=== PATIENT | male | born 1985 | race Caucasian/White ===

== ENCOUNTER 2016-12-14 11:08 | Emergency (ER) | payer SELFPAY ==
[~2016-12-14] VITALS: Ht 177.8 cm; Wt 94.5 kg
[2016-12-14 11:21] VITALS: Ht 177.8 cm; Wt 94.5 kg
[2016-12-14] MEDS ORDERED: ORPH100T PO (12:48)
[2016-12-14] MEDS ORDERED: IBUP-1542 PO (12:48)
--- NOTE | 2016-12-14 12:56 | ERD ---
ER Documentation Chief Complaint Date/Time DATE: 12/14/16 TIME: 12:54 Chief Complaint Pt with Lower back pain x 6 days after lifting heavy objects. HPI This is a 31-year-old male presents to the ER with lower back pain that started on 08 December he is picking up tables. Patient states that the next day he felt that pain got worse. Patient has been taking ibuprofen which has been helping his pain. Patient needs a note for work stating he is better to go back. Patient states that he does feel much better he wishes to go back to work. Patient denies any urinary bowel incontinence he denies any saddle like anesthesia patient denies any fevers or chills. He denies any IV drug use. ROS 12 point review of systems was done, all negative except per HPI. Medications Home Meds Active Scripts Orphenadrine Citrate (Norflex) 100 Mg Tablet.sa, 100 MG PO BID for 3 Days, TAB.SA Prov:SHARATH PEARCE 12/14/16 Ibuprofen* (Motrin*) 600 Mg Tab, 600 MG PO Q6, #30 TAB Prov:SHARATH PEARCE 12/14/16 PMhx/Soc History of Surgery: No Anesthesia Reaction: No Hx Neurological Disorder: No Hx Respiratory Disorders: No Hx Cardiac Disorders: No Hx Psychiatric Problems: No Hx Miscellaneous Medical Probl: No Hx Alcohol Use: No Hx Substance Use: No Hx Tobacco Use: No Physical Exam Vitals Vital Signs Date Time Temp Pulse Resp B/P Pulse Ox O2 Delivery O2 Flow Rate FiO2 12/14/16 11:21 98.2 71 14 138/79 98 Physical Exam GENERAL: The patient is well developed and appropriate for usual state of health , in no apparent distress. CHEST: Clear to auscultation bilaterally. There are no rales, wheezes or rhonchi. HEART: Regular rate and rhythm. No murmurs, clicks, rubs or gallops. BACK: No midline or flank tenderness. Normal range of motion, patient is able to ambulate in the exam room without any problems. Tense paraspinal muscles. Negative leg raise test. No step- offs. EXTREMITIES: Equal pulses bilaterally. There is no peripheral clubbing, cyanosis or edema. No focal swelling or erythema. Full range of motion. Grossly neurovascularly intact. NEURO: Alert and oriented SKIN: The skin is warm and dry. Procedures/MDM Differential Diagnosis includes but is not limited to back strain, vertebral fracture, epidural abscess, cauda equina, herniated disc, AAA rupture, kidney stones, UTI, pyelonephritis. This is a 31-year-old male presents to the ER with lower back pain that started 6 days ago. Patient states that he feels significantly better and would like a letter to go back to work. This time patient's physical examination is benign and I do not believe that x-ray is needed as he does not have any vertebral point tenderness his pain has improved. Suspicion for cauda equina. Patient is afebrile and well-appearing. He will be sent home with ibuprofen and Norflex. He is to follow-up with his primary care doctor within 1-2 days or return to ER sooner if symptoms worsen. My medical decision making was shared with the patient he understands and agrees with plan. Departure Diagnosis: Primary Impression: Back pain Condition: Stable Patient Instructions: Back Pain (Acute Or Chronic) Additional Instructions: Call your primary care doctor TOMORROW for an appointment during the next 1-2 days.See the doctor sooner or return here if your condition worsens before your appointment time. SHARATH PEARCE Dec 14, 2016 12:56
== END 2016-12-14 13:12 | disposition home or self-care (01) ==
LOC: FTE 11:08
DX: M54.5 Low back pain (principal)
CPT/HCPCS: 99283

== ENCOUNTER 2017-03-26 10:33 | Emergency (ER) | payer SELFPAY ==
[~2017-03-26] VITALS: Ht 170.2 cm; Wt 93.0 kg
[~2017-03-26 10:33] MED LIST: IBUP-1542 PO; ORPH100T PO
[2017-03-26 10:35] VITALS: Ht 170.2 cm; Wt 93.0 kg
--- NOTE | 2017-03-26 13:11 | ERD ---
ER Documentation Chief Complaint Chief Complaint Complains of dizzines x 3 days HPI 12:55 The patient is not in the room. 13:30 No answer. Medications Home Meds Active Scripts Orphenadrine Citrate (Norflex) 100 Mg Tablet.sa, 100 MG PO BID for 3 Days, TAB.SA Prov:SHARATH PEARCE Jessica 12/14/16 Ibuprofen* (Motrin*) 600 Mg Tab, 600 MG PO Q6, #30 TAB Prov:SHARATH PEARCE 12/14/16 PMhx/Soc History of Surgery: No Anesthesia Reaction: No Hx Neurological Disorder: No Hx Respiratory Disorders: No Hx Cardiac Disorders: No Hx Psychiatric Problems: No Hx Miscellaneous Medical Probl: No Hx Alcohol Use: No Hx Substance Use: No Hx Tobacco Use: No Physical Exam Vitals Vital Signs Date Time Temp Pulse Resp B/P Pulse Ox O2 Delivery O2 Flow Rate FiO2 03/26/17 10:35 98.0 66 20 135/75 99 12:55 Vital signs reviewed and stable Procedures/MDM Patient left without being seeing by me RADHA GOLDBERG MD Mar 26, 2017 13:11
== END 2017-03-26 14:51 | disposition left against medical advice (07) ==
LOC: FTE 10:33
DX: Z53.21 Procedure and treatment not carried out due to patient leaving prior to being seen by health care provider (principal)

== ENCOUNTER 2017-10-15 20:35 | Emergency (ER) | END 2017-10-15 22:57 | disposition home or self-care (01) ==